=== PATIENT | male | born 1950 | race African-American/Black ===

== ENCOUNTER 2017-04-01 13:52 | Emergency (ER) | payer MEDICARE ==
[~2017-04-01] VITALS: Ht 175.3 cm; Wt 75.7 kg
[2017-04-01 13:58] VITALS: BP_SYST 204
[2017-04-01] MEDS ORDERED: IBUPROFEN 800 MG TABLET PO ONE (14:15)
[2017-04-01] MEDS ORDERED: INSULIN REGULAR, HUMAN 10 UNITS/0.1 ML INJ IVP ONE (14:15)
[2017-04-01] MEDS ORDERED: NACL 0.9% 1,000 ML IV ONE (14:15)
[2017-04-01 14:20] LABS: EOSINOPHILS # (AUTO) 0.2 K/uL (0.0-0.4); HEMATOCRIT 46.2 % (36-54); LYMPHOCYTES # (AUTO) 0.7 K/uL (1.0-5.5)
[2017-04-01 14:23] LABS: BASOPHILS # (AUTO) 0.1 K/uL (0.0-0.2); BASOPHILS % (AUTO) 0.7 % (0.0-2.0); HEMOGLOBIN 14.5 g/dL (14.0-18.0); LYMPHOCYTES % (AUTO) 8.8 % (20.5-51.5); MEAN CORPUSCULAR HEMOGLOBIN 28 pg (27-31); MEAN CORPUSCULAR HGB CONC 32 % (32-36); MEAN CORPUSCULAR VOLUME 90 fL (79.0-98.0); MONOCYTES # (AUTO) 0.5 K/uL (0.0-1.0); MONOCYTES % (AUTO) 5.9 % (1.7-9.3); NEUTROPHILS # (AUTO) 6.3 K/uL (1.8-7.7); NEUTROPHILS % (AUTO) 82.6 % (40.0-70.0); PLATELET COUNT (AUTO) 192 K/uL (130-430); RED BLOOD CELL COUNT(AUTO) 5.12 MIL/uL (4.2-6.2); RED CELL DISTRIBUTION WIDTH 13.3 % (9.0-15.0); WHITE BLOOD COUNT (AUTO) 7.8 K/uL (4.8-10.8)
[2017-04-01 14:35] LABS: ANION GAP 10 (5-15); CALCIUM 7.9 mg/dL (8.4-11.0); CHLORIDE 97 mmol/L (98-107); CREATININE 3.38 mg/dL (0.55-1.30); POTASSIUM 4.6 mmol/L (3.5-5.1); SODIUM SERUM 132 mmol/L (136-145); UREA NITROGEN, BLOOD 63 mg/dL (8-21)
[2017-04-01 14:36] LABS: GFR AFRICAN AMERICAN 24 mL/min (>90)
[2017-04-01 14:38] LABS: ALANINE AMINOTRANSFERASE 84 U/L (12-78); AMYLASE 73 U/L (0-100); ASPARTATE AMINOTRANSFERASE 39 U/L (10-37); LIPASE 374 U/L (73-393); TOTAL BILIRUBIN 0.5 mg/dL (0.0-1.0)
[2017-04-01 14:40] LABS: GLUCOSE 702 mg/dL (70-99)
[2017-04-01 14:50] LABS: ACETONE, SERUM NEGATIVE (NEGATIVE)
[2017-04-01 17:05] VITALS: BP_SYST 179
== END 2017-04-01 17:05 | disposition home or self-care (01) ==
LOC: SED 13:52
DX: E11.65 Type 2 diabetes mellitus with hyperglycemia (principal)
CPT/HCPCS: 36415; 71010; 80053; 82009-TC; 82150-TC; 82962; 83690-TC; 85025; 93005; 96374; 99285; J1815